=== PATIENT | male | born 1940 | race Caucasian/White ===

== ENCOUNTER 2025-03-19 16:30 | Emergency (ER) | payer MEDICARE, SELFPAY ==
[2025-03-19 16:36] VITALS: BP 131/84
--- NOTE | 2025-03-19 17:06 | ED.GENMED ---
History of Present Illness
General
Chief Complaint: Fall
Source: patient and spouse
Time Seen by Provider: 03/19/25 16:50
History of Present Illness
History of Present Illness:
This patient is a very pleasant 84-year-old male who was walking and accidentally slipped and fell striking his face and shoulder on the concrete. He denies loss of consciousness. He was able to get back up, walk into the house, and wait for his
to arrive. He describes discomfort in the right upper humerus/shoulder area. He also notes a skin abrasion to the left palm. Otherwise he denies any complaints. He denies headache, loss of conscious, neck pain, numbness, tingling, chest
pain, shortness breath, abdominal pain, nausea, vomiting, or other complaints. Patient is unaware of his tetanus status.
Past History
Past History
ED Past Medical History: Other (Epilepsy)
Social History
Tobacco: Non-smoker
Alcohol: None
Drug: None
Personal:
Living: with family
Employment: Retired
Phy Exam
Physical Exam
Physical Exam:
GENERAL: Alert , in no apparent distress
EYE: pupils equal and reactive, EOMI, no nystagmus, no hyphema, no photophobia
NECK: Supple, no significant adenopathy, no midline tenderness.
ENT: o/p clr, mmm, no trismus, no drool, voice clear, no posadas, no raccoon, no tympanum. There is a 0.5 cm laceration noted on the inner aspect of the lower anterior mouth area, no active bleed. There is also a superficial skin tear along the
junction of the anterior lower gums and buccal area. Teeth are stable throughout. No septal hematoma, no nosebleed, no tenderness to palpation of nose, no deformity of face, no crepitus..
CARDIAC: Regular rate and rhythm .
LUNGS: Clear breath sounds bilaterally, no acute respiratory distress, no wheezes/rales/rhonchi
ABDOMEN: Soft, without focal tenderness, no r/g, no cvat
NEUROLOGICAL: Alert and oriented, no focal neuro deficits
SKIN: Warm and dry, superficial skin tear noted to the left palm without associated bony tenderness or deformity
MUSCULOSKELETAL: Diffuse tenderness to palpation noted of the right shoulder and upper humerus with limited range of motion due to pain well perfused. Full range of motion without deformity of lower extremities throughout and left upper extremity
PSYCH: Normal and appropriate interaction.
Course
Orders/Labs/Results
Orders:
Orders
03/19/25 16:51
Shoulder, Right 2 Views [CR Shoulder - Right Min 2 View] Urgent
Comment:
Reason For Exam: fall
03/19/25 17:05
Tetanus/Diphth/Acelpertussis [Adacel] 0.5 ml IM .ONCE ONE
Nursing to Place Non Medication Order As Directed
Physician Order: wound care L hand please
Humerus, Right 2 Views [CR Humerus - Right Min 2 View*] Urgent
Comment:
Reason For Exam: fall
03/19/25 18:37
Morphine Sulfate 6 mg IM NOW STA
Penicillin V Potassium [Pen Vk] 500 mg PO NOW STA
Vital Signs
Initial and Last Documented VS:
Initial Vital Signs
Temp Pulse Resp BP Pulse Ox
98.4 F 116 18 131/84 95
03/19/25 16:36 03/19/25 16:36 03/19/25 16:36 03/19/25 16:36 03/19/25 16:36
Last Documented Vital Signs
Temp Pulse Resp BP Pulse Ox
98.4 F 116 18 131/84 95
03/19/25 16:36 03/19/25 16:36 03/19/25 16:36 03/19/25 16:36 03/19/25 17:06
Procedures
Splinting/Sling Placement
Right Arm:
Procedure completed by: Mariely Perla MD
Pre-splint extermity exam: neurovascular intact
Type of splint: other (coaption)
Splint material: fiberglass
Splint checked by provider?: Yes
Type of sling: shoulder immobilizer
Normal distal neurovascular exam?: Yes
*Pulse Oximetry
SaO2: 95
Oxygen Mode of Delivery: Room air
Patient hypoxic: no
*Critical Care Note
Total Time (30-74mins, 75-104mins- exclusive of procedures): Not Applicable
Update Note
Update Note:
Patient presents to the Emergency Department with ___fall
Number and Complexity of Problems Addressed at the Encounter
� Chronic conditions affecting care:
� Acute Exacerbation and/or Progression of Chronic Illness:
� Differential Diagnosis includes: Nasal fracture, septal hematoma, intracranial injury, laceration, clavicle fracture, shoulder distal, shoulder fracture, cervical fracture, etc. etc. etc.
Amount and/or Complexity of Data to be Reviewed and Analyzed
� I performed an independent evaluation of and my interpretation is:
EKG:
CT:
Xrays:Acute spiral fracture of the proximal shaft of the right humerus. Posterior displacement of the distal fracture fragment by up to 2 cm.
The glenohumeral, acromioclavicular, and elbow joint alignments are maintained.
Laboratory Studies:
Other:
� Review of other/old records reveals:
� Clinical information was obtained by an independent historian: who is bedside
� Prescriptions/Medications Considered but not given:
� Further testing considered but not performed:
Risk of Complications and/or Morbidity or Mortality of Patient Management
� Social determinants of health affecting care:
� Discussion with other providers (PCP, Hospitalists, Consultants, etc):
� Escalation of care including admission/observation vs risk of discharge considered: Patient agreeable to pain medication at this time virtually before splint placement. Case discussed with Dr. Allen from orthopedics, x-rays
sent to him, he recommends call [facility] splint and they will see the patient this week. Patient is neurovascularly intact without evidence of nerve injury. In addition, given intraoral injury, will put on prophylactic penicillin. He declines
repair of intraoral laceration and will follow a soft diet. Tetanus updated. Wound care provided particular the left hand
ED Attending Note
-
Portions of this chart may have been created with voice recognition software.� Occasional wrong word or��sound alike� substitutions may have occurred due to the inherent limitations of voice recognition software.
Discharge Plan
Departure
Patient Disposition: Home (Routine Discharge)
Date of Disposition: 03/19/25
Time of Disposition: 19:44
Patient with high blood pressure during this ER visit?: Yes
Condition: Good
Discharge Problem:
Fracture, humerus
Instructions: Mouth and dental injuries in adults, Shoulder or upper arm fracture, Abrasions - ED (DC), Cast care - ED (DC), BLOOD PRESSURE
Prescriptions:
New
penicillin V potassium 500 mg tablet
1,000 mg PO BID Qty: 20 0RF
oxycodone-acetaminophen [Percocet] 5-325 mg tablet
1 tab PO Q4HPRN PRN (Reason: pain) Qty: 13 0RF
Referrals:
Obi Dumas, DO [Family Provider, Family Practice]
Alex Allen MD [Active, Orthopedics] - Tomorrow
Activity Restrictions/Additional Instructions:
IF YOU DEVELOP NUMBNESS, TINGLING, INCREASING NEW OR UNMANAGEABLE PAIN, SEVERE HEADACHE, VOMITING, CHEST PAIN, SHORTNESS OF BREATH, OR OTHER WORRISOME SIGNS, PLEASE RETURN TO THE ER IMMEDIATELY ASKED
Interventions
Interventions:
*Risk Screen - Suicide Last Done: 03/19/25 16:36
*General Assessment Last Done: 03/19/25 17:17
*Neglect/Abuse Screening Last Done: 03/19/25 17:17
*ED- Fall Risk Assessment Last Done: 03/19/25 17:17
*ED COVID-19 Vaccine History Last Done: 03/19/25 17:17
ED- Neurological Assessment Last Done: 03/19/25 17:17
Discharge Date and Time
Print Language: TELUGU
[2025-03-19 17:20] VITALS: BMI 26.3
[2025-03-19] MEDS: ADACEL 0.5 ML IM (18:43)
[2025-03-19] MEDS: MORPHINE SULFATE 6 MG IM (18:44)
[2025-03-19 19:00] VITALS: BP 157/101
[2025-03-19] MEDS: PEN VK 500 MG PO (19:41)
== END 2025-03-19 20:10 | disposition home or self-care (01) ==
LOC: EMR 16:30
PROVIDERS: EMERGENCY PHYSICIAN Emergency Medicine; FAMILY PHYSICIAN Family Medicine
DX: S42.341A Displaced spiral fracture of shaft of humerus, right arm, initial encounter for closed fracture (principal); R03.0 Elevated blood-pressure reading, without diagnosis of hypertension; G40.909 Epilepsy, unspecified, not intractable, without status epilepticus; Z23 Encounter for immunization; W01.198A Fall on same level from slipping, tripping and stumbling with subsequent striking against other object, initial encounter; Y93.01 Activity, walking, marching and hiking
CPT/HCPCS: 99284; 96372; 90471; 73030; 73060; 90715

== ENCOUNTER → 2025-03-20 09:28 | Outpatient (REF) | payer MEDICARE, OTHER, SELFPAY ==
[2025-03-20 10:19] LABS: Hematocrit 40.4 % (39.0-52.0); Hemoglobin 13.9 g/dL (13.0-18.0); Mean Corp Hgb Conc. 34.4 g/dL (33.0-37.0); Mean Corpuscular Volume 90.4 fL (80.0-94.0); Nucleated Red Blood Cells % 0 % (-); Platelet Count 245 10^3/uL (130-400); Red Cell Dist. Width 13.0 % (11.5-14.5)
[2025-03-20 11:10] LABS: Blood Urea Nitrogen 34 mg/dl (9-20); Calcium 9.5 mg/dl (8.4-10.2); Carbon Dioxide 24 mmol/L (22-30); Chloride 102 mmol/L (98-107); Glucose 140 mg/dl (70-99); Potassium 4.5 mmol/L (3.5-5.1); Sodium 136 mmol/L (135-145); eGFR 49.87
--- NOTE | 2025-03-20 13:29 | VNURNOTE ---
Home Health Liaison spoke with pt's spouse to discuss [facility] nurse/therapy, visits, schedule and homebound status. She is agreeable and understands that visits at home will be 2-3 x per week to assess and teach medical management. Spouse is aware
that [facility] will contact them for start of care in 1-2 days after discharge from .
[facility] referral completed in [facility].
== END ==
LOC: REG 09:28
PROVIDERS: ATTENDING PHYSICIAN Orthopaedic Surgery; FAMILY PHYSICIAN Family Medicine
DX: Z01.818 Encounter for other preprocedural examination (principal)
CPT/HCPCS: 36415; 80048; 85025; 93005

== ENCOUNTER 2025-03-21 06:13 | Day surgery (SDC) | payer MEDICARE, SELFPAY ==
--- NOTE | 2025-03-20 12:56 | CM ---
WEN was consulted regarding patient's upcoming surgery on 03/21. CM spoke with . She stated that she feels they need assistance in the home. Patient's was agreeable to [facility]; PT/OT.
WEN sent referral to [facility] Admission RN.
--- NOTE | 2025-03-20 14:11 | PTCARENOTE ---
Abn CreatinineGenoveva At Dr Allen's office made aware.
--- NOTE | 2025-03-20 14:12 | PTCARENOTE ---
Abn ECG, Dr. Tang notified, no additional interventions required.
[2025-03-21] VITALS (9 sets, daily range): BP systolic 118–139; BP diastolic 71–90; BMI 25.1
[2025-03-21] MEDS: CELEBREX 200 MG PO (07:42)
[2025-03-21] MEDS: NORMOSOL-R/PLASMALYTE-A 1000 IV (07:42)
[2025-03-21] MEDS: TYLENOL 1000 MG PO (07:42)
== END 2025-03-21 13:32 | disposition home or self-care (01) ==
LOC: SDS 06:13
PROVIDERS: ATTENDING PHYSICIAN Orthopaedic Surgery
DX: S42.291A Other displaced fracture of upper end of right humerus, initial encounter for closed fracture (principal); W19.XXXA Unspecified fall, initial encounter
CPT/HCPCS: 24515; 73060; 76000; C1713